=== PATIENT | female | born 1995 | race Caucasian/White ===

== ENCOUNTER 2017-10-16 01:47 | Observation (INO) ==
[2017-10-16] MEDS ORDERED: ACETAMINOPHEN 325 MG TABLET PO PRN (03:20)
[2017-10-16] MEDS ORDERED: ONDANSETRON 4 MG/2 ML VIAL IV PRN (03:20)
[2017-10-16 03:48] LABS: Basophils % 0.2 % (0.0-0.8); Eosinophils # 0.2 10*3/uL (0.0-0.87); Eosinophils % 0.9 % (0.00-10.9); Hematocrit 32.2 VOL% (35.7-47.0); Hemoglobin 11.3 GM/DL (12.0-16.0); Immature Granulocytes % 1.3 %; Immature Granulocytes Absolute 0.25 #; Lymphocytes # 3.2 10*3/uL (1.4-4.0); Lymphocytes % 17.5 % (21.3-54.2); Mean Corpuscular HGB Conc 35.1 GM/DL (32-36); Mean Corpuscular Hemoglobin 30 PG (27-34); Mean Corpuscular Volume 84.5 FL (87-102); Mean Platelet Volume 9.5 FL (9.6-12.0); Monocytes % 5.1 % (1.7-12.7); Neutrophils # 13.9 10*3/uL (1.4-7.4); Platelet Count 344 T/CUMM (130-400); Red Blood Count 3.81 MC/CUMM (3.8-5.5); Red Cell Distribution Width 13.1 % (9.3-17.3); White Blood Count 18.5 T/CUMM (4-12)
[2017-10-16 04:04] LABS: Apearance,Urine CLOUDY (Clear); Bilirubin,Urine Negative (Negative); Blood, Urine Negative (Negative); Glucose,Urine (UA) Negative (Negative); Ketones,Urine Negative (Negative); Mucus,Urine Occasional /LPF (Occasional); Nitrite,Urine Negative (Negative); Protein,Urine 30 MG/DL; Squamous Epithelial Cell,Urine Few /HPF (0-10); Urine Color Yellow (Yellow); Urine Specific Gravity 1.016 (1.001-1.035); Urine Urobilinogen < 2.0 EU/DL (0.2-1.0); WBC,Urine 10 /HPF (0-6)
[2017-10-16 04:05] LABS: Alanine Aminotransferase 10 U/L (13-56); Albumin 2.7 G/DL (3.4-5.0); Alkaline Phosphatase 120 U/L (45-117); Aspartate Amino Transferase 14 U/L (0-37); Bilirubin,Total < 0.39 MG/DL (0.2-1.0); Blood Urea Nitrogen 6 MG/DL (7-18); Calcium 8.7 MG/DL (8.5-10.1); Glucose 103 MG/DL (74-106); Osmolality,Calculated 272.7 MOS/KG (273-304); Potassium 3.5 MMOL/L (3.5-5.1); Sodium 138 MMOL/L (136-145); Total Protein 6.1 G/DL (6.4-8.3)
[2017-10-16] MEDS ORDERED: MEPERIDINE 25 MG/1 ML VIAL IV ONE (05:00)
[2017-10-16] MEDS ORDERED: PROMETHAZINE 25 MG/1 ML VIAL IM ONE (05:00)
[2017-10-16 08:32] VITALS: BP 109/72
== END 2017-10-16 10:25 | disposition home or self-care (01) ==
LOC: N.ED 01:47 → N.OB 01:47
PROVIDERS: ADMIT Obstetrics & Gynecology; ATTEND Obstetrics & Gynecology

== ENCOUNTER 2017-12-29 06:09 | Inpatient (IN) ==
[2017-12-29] MEDS ORDERED: BUTORPHANOL 1 MG/ML VIAL IV PRN (06:31)
[2017-12-29] MEDS ORDERED: MEPERIDINE 50 MG/1 ML VIAL IV PRN (06:31)
[2017-12-29] MEDS ORDERED: OXYTOCIN/LR 20 UNIT/1,000 ML BAG IV PRN (06:31)
[2017-12-29] MEDS ORDERED: DINOPROSTONE VAG GEL 10 MG SYRINGE VAG PRN (06:38)
[2017-12-29] MEDS: LACTATED RINGERS 1,000 ML IV SCH ×2 (06:45→17:41)
[2017-12-29 07:08] LABS: Basophils % 0.2 % (0.0-0.8); Eosinophils # 0.2 10*3/uL (0.0-0.87); Eosinophils % 0.8 % (0.00-10.9); Hematocrit 29.9 VOL% (35.7-47.0); Hemoglobin 10.5 GM/DL (12.0-16.0); Immature Granulocytes % 2.1 %; Immature Granulocytes Absolute 0.41 #; Lymphocytes # 2.5 10*3/uL (1.4-4.0); Lymphocytes % 13.2 % (21.3-54.2); Mean Corpuscular HGB Conc 35.1 GM/DL (32-36); Mean Corpuscular Hemoglobin 29 PG (27-34); Mean Corpuscular Volume 81.5 FL (87-102); Mean Platelet Volume 9.9 FL (9.6-12.0); Monocytes # 1.2 10*3/uL (0.11-0.8); Monocytes % 6.3 % (1.7-12.7); Neutrophils # 14.8 10*3/uL (1.4-7.4); Neutrophils % 77.4 % (38.7-73.9); Platelet Count 373 T/CUMM (130-400); Red Blood Count 3.67 MC/CUMM (3.8-5.5); Red Cell Distribution Width 13.7 % (9.3-17.3); White Blood Count 19.1 T/CUMM (4-12)
[2017-12-29] MEDS: ALUMINUM/MAGNES/SIMETH MAX STR 30 ML UDCUP PO PRN ×3 (07:26→23:47)
[2017-12-29 07:31] LABS: Albumin 2.4 G/DL (3.4-5.0); Bilirubin,Total 0.4 MG/DL (0.2-1.0); Calcium 8.7 MG/DL (8.5-10.1); Osmolality,Calculated 272.7 MOS/KG (273-304); Potassium 4.2 MMOL/L (3.5-5.1); Total Protein 6.2 G/DL (6.4-8.3)
[2017-12-29] MEDS ORDERED: DINOPROSTONE VAG GEL 10 MG SYRINGE VAG ONE (15:00)
[2017-12-29] MEDS: ONDANSETRON 4 MG/2 ML VIAL IV PRN (19:21)
[2017-12-29] MEDS ORDERED: hydrOXYzine HCL 25 MG/1 ML VIAL IM PRN (20:42)
[2017-12-29] MEDS ORDERED: ePHEDrine 50 MG/ML AMP IV PRN (20:42)
[2017-12-29] MEDS ORDERED: fentaNYL 2 MCG/ROPIV 0.2% EPID 150 ML EPIDURAL PRN (20:42)
[2017-12-29] MEDS ORDERED: PROMETHAZINE 25 MG/1 ML VIAL IM PRN (20:42)
[2017-12-29] MEDS ORDERED: diphenhydrAMINE 50 MG/1 ML VIAL IV PRN ×2 (20:42)
[2017-12-29] MEDS ORDERED: FAMOTIDINE 20 MG/2 ML VIAL IV PRN (20:45)
[2017-12-29] MEDS ORDERED: CITRIC ACID/SODIUM CITRATE 30 ML UDCUP PO PRN (20:45)
[2017-12-30] MEDS ORDERED: OXYTOCIN/LR 20 UNIT/1,000 ML BAG IV SCH (02:00)
[2017-12-30] MEDS: ALUMINUM/MAGNES/SIMETH MAX STR 30 ML UDCUP PO PRN (04:31)
[2017-12-30] MEDS: ONDANSETRON 4 MG/2 ML VIAL IV PRN (10:45)
[2017-12-30 12:05] LABS: Apearance,Urine CLEAR (Clear); Bilirubin,Urine Negative (Negative); Blood, Urine Negative (Negative); Glucose,Urine (UA) Negative (Negative); Ketones,Urine Negative (Negative); Mucus,Urine Occasional /LPF (Occasional); Nitrite,Urine Negative (Negative); Protein,Urine Negative; RBC,Urine 1 /HPF (0-4); Squamous Epithelial Cell,Urine Occasional /HPF (0-10); Urine Color Straw (Yellow); Urine Specific Gravity 1.011 (1.001-1.035); Urine Urobilinogen < 2.0 EU/DL (0.2-1.0); WBC,Urine 2 /HPF (0-6)
[2017-12-30] MEDS ORDERED: ONDANSETRON 4 MG/2 ML VIAL IV PRN (13:33)
[2017-12-30] MEDS ORDERED: MEASLES/MUMPS/RUBELLA VACCINE 0.5 ML VIAL SUBCUT ONE (13:33)
[2017-12-30] MEDS ORDERED: RHO(D) IMMUNE GLOBULIN 300 MCG SYRINGE IM ONE (13:33)
[2017-12-30] MEDS ORDERED: LANOLIN 50% CREAM 0.3 OZ TUBE TOP PRN (13:33)
[2017-12-30] MEDS ORDERED: ACETAMINOPHEN 325 MG TABLET PO PRN (13:33)
[2017-12-30] MEDS ORDERED: BENZOCAINE 20%/MENTHOL 0.5% SPRAY 56 GM CAN TOP PRN (13:33)
[2017-12-30] MEDS ORDERED: OXYTOCIN/LR 20 UNIT/1,000 ML BAG IV ONE (13:33)
[2017-12-30] MEDS ORDERED: HYDROCORTISONE 2.5% RECTAL CREAM 30 GM TUBE TOP PRN (13:33)
[2017-12-30] MEDS ORDERED: oxyCODONE/ACETAMINOPHEN 5-325 MG TABLET PO PRN (13:33)
[2017-12-30] MEDS ORDERED: DIPH/TET/ACEL PERT BOOSTER VACCINE 0.5 ML VIAL IM ONE (13:33)
[2017-12-30] MEDS ORDERED: WITCH HAZEL PADS 100/JAR TOP PRN (13:33)
[2017-12-30] MEDS ORDERED: BISACODYL 10 MG SUPP RECTAL PRN (13:33)
[2017-12-30] MEDS: IBUPROFEN 800 MG TABLET PO PRN (19:55)
[2017-12-30] MEDS: DOCUSATE SODIUM 100 MG CAPSULE PO SCH (20:47)
[2017-12-30] MEDS: oxyCODONE/ACETAMINOPHEN 5-325 MG TABLET PO PRN (20:47)
[2017-12-31] MEDS: DOCUSATE SODIUM 100 MG CAPSULE PO SCH ×2 (08:09→21:39)
[2017-12-31] MEDS: IBUPROFEN 800 MG TABLET PO PRN ×2 (08:09→15:51)
[2017-12-31 08:10] LABS: Basophils % 0.2 % (0.0-0.8); Eosinophils # 0.2 10*3/uL (0.0-0.87); Eosinophils % 0.8 % (0.00-10.9); Hematocrit 24.4 VOL% (35.7-47.0); Immature Granulocytes % 1.8 %; Immature Granulocytes Absolute 0.35 #; Lymphocytes # 2.6 10*3/uL (1.4-4.0); Lymphocytes % 13.8 % (21.3-54.2); Mean Corpuscular HGB Conc 33.2 GM/DL (32-36); Mean Corpuscular Hemoglobin 28 PG (27-34); Mean Corpuscular Volume 84.4 FL (87-102); Mean Platelet Volume 10.3 FL (9.6-12.0); Monocytes # 1.1 10*3/uL (0.11-0.8); Monocytes % 5.9 % (1.7-12.7); Neutrophils # 14.7 10*3/uL (1.4-7.4); Neutrophils % 77.5 % (38.7-73.9); Platelet Count 306 T/CUMM (130-400); Red Cell Distribution Width 13.6 % (9.3-17.3); White Blood Count 18.9 T/CUMM (4-12)
[2017-12-31 08:31] LABS: Hemoglobin 8.1 GM/DL (12.0-16.0); Red Blood Count 2.89 MC/CUMM (3.8-5.5)
[2017-12-31] MEDS: oxyCODONE/ACETAMINOPHEN 5-325 MG TABLET PO PRN ×2 (09:54→19:56)
[2018-01-01] MEDS: oxyCODONE/ACETAMINOPHEN 5-325 MG TABLET PO PRN (03:36)
[2018-01-01 08:12] VITALS: BP 105/64
== END 2018-01-01 11:40 | disposition home or self-care (01) | DRG 560 ==
LOC: N.LDOUT 06:09 → N.LD 06:12 → N.OB 12-30 20:19
PROVIDERS: ADMIT Obstetrics & Gynecology; ATTEND Obstetrics & Gynecology

== ENCOUNTER 2019-08-01 14:58 | Inpatient (IN) ==
[2019-08-01] MEDS ORDERED: ONDANSETRON 4 MG/2 ML VIAL IV PRN (15:25)
[2019-08-01] MEDS ORDERED: MEPERIDINE 50 MG/1 ML VIAL IV PRN (15:30)
[2019-08-01] MEDS ORDERED: CARBOPROST TROMETHAMINE 250 MCG/ML AMP IM PRN (15:30)
[2019-08-01] MEDS ORDERED: LIDOCAINE 1% 50 ML VIAL MISC INJ ONE (15:30)
[2019-08-01] MEDS ORDERED: miSOPROStoL 200 MCG TABLET VAG PRN (15:30)
[2019-08-01] MEDS ORDERED: BUTORPHANOL 2 MG/ML VIAL IV PRN (15:30)
[2019-08-01] MEDS ORDERED: LACTATED RINGERS 1,000 ML IV SCH (15:30)
[2019-08-01 15:50] LABS: Basophils % 0.1 % (0.0-0.8); Eosinophils # 0.1 10*3/uL (0.0-0.87); Eosinophils % 0.6 % (0.00-10.9); Hematocrit 34.2 VOL% (35.7-47.0); Hemoglobin 11.3 GM/DL (12.0-16.0); Immature Granulocytes % 0.7 %; Lymphocytes # 1.9 10*3/uL (1.4-4.0); Mean Corpuscular Volume 80.5 FL (87-102); Mean Platelet Volume 9.8 FL (9.6-12.0); Monocytes % 5.5 % (1.7-12.7); Neutrophils % 80.1 % (38.7-73.9); Platelet Count 392 T/CUMM (130-400); Red Blood Count 4.25 MC/CUMM (3.8-5.5); Red Cell Distribution Width 14.3 % (9.3-17.3); White Blood Count 14.4 T/CUMM (4-12)
[2019-08-01] MEDS ORDERED: DINOPROSTONE VAG GEL 10 MG SYRINGE VAG ONE (16:00)
[2019-08-01 16:13] LABS: Alanine Aminotransferase 16 U/L (13-56); Albumin 2.6 G/DL (3.4-5.0); Alkaline Phosphatase 177 U/L (45-117); Aspartate Amino Transferase 12 U/L (0-37); Bilirubin,Total < 0.39 MG/DL (0.2-1.0); Blood Urea Nitrogen 7 MG/DL (7-18); Calcium 8.8 MG/DL (8.5-10.1); Estimated Glom Filtration Rate 140 ML/MIN; Glucose 103 MG/DL (74-106); Osmolality,Calculated 267.1 MOS/KG (273-304); Total Protein 6.9 G/DL (6.4-8.3); Uric Acid 4.5 MG/DL (2.6-6.0)
[2019-08-01] MEDS ORDERED: OXYTOCIN 10 UNIT/ML VIAL ONE (19:59)
[2019-08-01] MEDS ORDERED: miSOPROStoL 200 MCG TABLET ONE (20:01)
[2019-08-01] MEDS ORDERED: CARBOPROST TROMETHAMINE 250 MCG/ML AMP IM ONE (20:02)
[2019-08-01] MEDS ORDERED: METHYLERGONOVINE 0.2 MG/1 ML AMP ONE (20:02)
[2019-08-01] MEDS ORDERED: ALUMINUM/MAGNES/SIMETH MAX STR 30 ML UDCUP PO PRN (21:22)
[2019-08-02] MEDS: OXYTOCIN/LR 20 UNIT/1,000 ML BAG IV SCH ×2 (02:23→16:05)
[2019-08-02] MEDS ORDERED: NALOXONE 0.4 MG/ML VIAL IV PRN (07:30)
[2019-08-02] MEDS ORDERED: LACTATED RINGERS 1,000 ML IV SCH ×2 (07:30)
[2019-08-02] MEDS ORDERED: diphenhydrAMINE 50 MG/1 ML VIAL IV PRN ×2 (07:30)
[2019-08-02] MEDS ORDERED: LACTATED RINGERS 1,000 ML IV ONE (07:30)
[2019-08-02] MEDS ORDERED: fentaNYL 2 MCG/ROPIV 0.2% EPID 100 ML EPIDURAL SCH (07:30)
[2019-08-02] MEDS ORDERED: ePHEDrine 50 MG/ML AMP IV PRN (07:30)
[2019-08-02] MEDS ORDERED: PROMETHAZINE 25 MG/1 ML VIAL IM ONE (07:30)
[2019-08-02] MEDS ORDERED: ONDANSETRON 4 MG/2 ML VIAL IV ONE (07:30)
[2019-08-02] MEDS ORDERED: FAMOTIDINE 20 MG/2 ML VIAL IV ONE (07:30)
[2019-08-02] MEDS ORDERED: hydrOXYzine HCL 25 MG/1 ML VIAL IM PRN (07:30)
[2019-08-02] MEDS ORDERED: CITRIC ACID/SODIUM CITRATE 30 ML UDCUP PO ONE (07:30)
[2019-08-02 10:39] LABS: Apearance,Urine CLEAR (Clear); Bilirubin,Urine Negative (Negative); Blood, Urine Negative (Negative); Glucose,Urine (UA) Negative (Negative); Ketones,Urine Negative (Negative); Nitrite,Urine Negative (Negative); Protein,Urine Negative; RBC,Urine <1 /HPF (0-4); Squamous Epithelial Cell,Urine Occasional /HPF (0-10); Urine Color Straw (Yellow); Urine Urobilinogen < 2.0 EU/DL (0.2-1.0); WBC,Urine <1 /HPF (0-6)
[2019-08-02] MEDS ORDERED: LIDOCAINE 1% 50 ML VIAL ONE (12:34)
[2019-08-02] MEDS ORDERED: METHYLERGONOVINE 0.2 MG/1 ML AMP ONE ×2 (12:38→16:56)
[2019-08-02 12:58] LABS: Cord Venous Blood HCO3 22.3 MMOL/L; Cord Venous Blood PCO2 41.5 MMHG; Cord Venous Blood PO2 33.5
[2019-08-02] MEDS ORDERED: OXYTOCIN/LR 20 UNIT/1,000 ML BAG IV ONE ×3 (16:07→17:16)
[2019-08-02] MEDS ORDERED: miSOPROStoL 200 MCG TABLET ONE (16:55)
[2019-08-02] MEDS ORDERED: CARBOPROST TROMETHAMINE 250 MCG/ML AMP IM ONE (16:56)
[2019-08-02] MEDS ORDERED: RHO(D) IMMUNE GLOBULIN 300 MCG SYRINGE IM ONE (17:16)
[2019-08-02] MEDS ORDERED: BISACODYL 10 MG SUPP RECTAL PRN (17:16)
[2019-08-02] MEDS ORDERED: LANOLIN 50% CREAM 0.3 OZ TUBE TOP PRN (17:16)
[2019-08-02] MEDS ORDERED: MEASLES/MUMPS/RUBELLA VACCINE 0.5 ML VIAL SUBCUT ONE (17:16)
[2019-08-02] MEDS ORDERED: oxyCODONE/ACETAMINOPHEN 5-325 MG TABLET PO PRN ×2 (17:16)
[2019-08-02] MEDS ORDERED: DIPH/TET/ACEL PERT BOOSTER VACCINE 0.5 ML VIAL IM ONE (17:16)
[2019-08-02] MEDS ORDERED: WITCH HAZEL PADS 100/JAR TOP PRN (17:16)
[2019-08-02] MEDS ORDERED: HYDROCORTISONE 2.5% RECTAL CREAM 30 GM TUBE TOP PRN (17:16)
[2019-08-02] MEDS ORDERED: ACETAMINOPHEN 325 MG TABLET PO PRN (17:16)
[2019-08-02] MEDS ORDERED: BENZOCAINE 20%/MENTHOL 0.5% SPRAY 56 GM CAN TOP PRN (17:16)
[2019-08-02] MEDS: IBUPROFEN 800 MG TABLET PO PRN (19:40)
[2019-08-02] MEDS: DOCUSATE SODIUM 100 MG CAPSULE PO SCH (21:32)
[2019-08-03 06:31] LABS: Basophils % 0.3 % (0.0-0.8); Eosinophils # 0.3 10*3/uL (0.0-0.87); Eosinophils % 2.2 % (0.00-10.9); Hematocrit 31.7 VOL% (35.7-47.0); Hemoglobin 10.3 GM/DL (12.0-16.0); Immature Granulocytes % 0.7 %; Immature Granulocytes Absolute 0.09 #; Lymphocytes % 14.6 % (21.3-54.2); Mean Corpuscular HGB Conc 32.5 GM/DL (32-36); Mean Corpuscular Volume 81.5 FL (87-102); Mean Platelet Volume 10.1 FL (9.6-12.0); Monocytes % 6.8 % (1.7-12.7); Neutrophils % 75.4 % (38.7-73.9); Platelet Count 325 T/CUMM (130-400); Red Blood Count 3.89 MC/CUMM (3.8-5.5); Red Cell Distribution Width 14.6 % (9.3-17.3); White Blood Count 13.7 T/CUMM (4-12)
[2019-08-03] MEDS: DOCUSATE SODIUM 100 MG CAPSULE PO SCH ×2 (09:50→20:41)
[2019-08-03] MEDS: IBUPROFEN 800 MG TABLET PO PRN ×2 (09:54→16:02)
[2019-08-03] MEDS ORDERED: INFLUENZA VIRUS VACCINE 0.5 ML SYRINGE IM ONE (15:51)
[2019-08-04] MEDS ORDERED: INFLUENZA VIRUS VACCINE 0.5 ML SYRINGE IM ONE (08:50)
[2019-08-04] MEDS: DOCUSATE SODIUM 100 MG CAPSULE PO SCH (09:05)
[2019-08-04 11:27] VITALS: BP 114/65
== END 2019-08-04 13:30 | disposition home or self-care (01) | DRG 560 ==
LOC: N.LDOUT 14:58 → N.LD 15:04 → N.OB 08-02 17:47
PROVIDERS: ADMIT Obstetrics & Gynecology; ATTEND Obstetrics & Gynecology

== ENCOUNTER 2021-11-10 09:26 | Inpatient (IN) ==
[2021-11-10] MEDS ORDERED: miSOPROStoL 200 MCG TABLET RECTAL PRN (10:01)
[2021-11-10] MEDS ORDERED: CARBOPROST TROMETHAMINE 250 MCG/ML AMP IM PRN (10:01)
[2021-11-10] MEDS ORDERED: TRANEXAMIC ACID 1,000 MG in SODIUM CHLORIDE 0.9% 100 ML IV PRN (10:01)
[2021-11-10] MEDS ORDERED: ceFAZolin 2,000 MG/50 ML DUPLEX IV ONE (10:01)
[2021-11-10] MEDS ORDERED: FAMOTIDINE 20 MG/2 ML VIAL IV ONE (10:01)
[2021-11-10] MEDS ORDERED: OXYTOCIN/LR 20 UNIT/1,000 ML BAG IV ONE ×2 (10:01→14:54)
[2021-11-10] MEDS ORDERED: CITRIC ACID/SODIUM CITRATE 30 ML UDCUP PO ONE (10:01)
[2021-11-10] MEDS ORDERED: METHYLERGONOVINE 0.2 MG/1 ML AMP IM PRN (10:01)
[2021-11-10] MEDS ORDERED: LACTATED RINGERS 1,000 ML IV ONE ×2 (10:09→14:23)
[2021-11-10] MEDS ORDERED: LACTATED RINGERS 1,000 ML IV SCH ×2 (10:30→15:00)
[2021-11-10 10:59] LABS: Basophils % 0.2 % (0.0-0.8); Eosinophils # 0.2 10*3/uL (0.0-0.87); Eosinophils % 1.5 % (0.00-10.9); Hematocrit 33.8 VOL% (35.7-47.0); Hemoglobin 11.1 GM/DL (12.0-16.0); Immature Granulocytes % 0.6 %; Immature Granulocytes Absolute 0.07 #; Lymphocytes # 1.3 10*3/uL (1.4-4.0); Lymphocytes % 10.7 % (21.3-54.2); Mean Corpuscular HGB Conc 32.8 GM/DL (32-36); Mean Corpuscular Volume 81.8 FL (87-102); Mean Platelet Volume 10.1 FL (9.6-12.0); Monocytes # 0.6 10*3/uL (0.11-0.8); Monocytes % 5.1 % (1.7-12.7); Neutrophils % 81.9 % (38.7-73.9); Platelet Count 313 T/CUMM (130-400); Red Blood Count 4.13 MC/CUMM (3.8-5.5); Red Cell Distribution Width 13.7 % (9.3-17.3); White Blood Count 12.3 T/CUMM (4-12)
[2021-11-10 11:24] LABS: Alanine Aminotransferase 19 U/L (13-56); Albumin 2.3 G/DL (3.4-5.0); Alkaline Phosphatase 233 U/L (45-117); Aspartate Amino Transferase 16 U/L (0-37); Bilirubin,Total < 0.39 MG/DL (0.20-1.00); Blood Urea Nitrogen 8 MG/DL (7-18); Calcium 8.8 MG/DL (8.5-10.1); Carbon Dioxide 23 MMOL/L (21-32); Chloride 108 MMOL/L (98-107); Estimated Glom Filtration Rate 131 ML/MIN; Glucose 67 MG/DL (74-106); Potassium 4.2 MMOL/L (3.5-5.1); Sodium 136 MMOL/L (136-145); Total Protein 6.6 G/DL (6.4-8.2)
[2021-11-10] MEDS ORDERED: OXYTOCIN/LR 30 UNIT/1,000 ML BAG IV ONE (13:00)
[2021-11-10] MEDS ORDERED: OXYTOCIN 10 UNIT/ML VIAL IM ONE (13:00)
[2021-11-10] MEDS ORDERED: miSOPROStoL 200 MCG TABLET ONE (13:01)
[2021-11-10] MEDS ORDERED: TRANEXAMIC ACID 1,000 MG/10 ML VIAL ONE (13:01)
[2021-11-10] MEDS ORDERED: CARBOPROST TROMETHAMINE 250 MCG/ML AMP IM ONE (13:02)
[2021-11-10] MEDS ORDERED: OXYTOCIN/LR 0 UNIT/0 ML BAG IV ONE (13:02)
[2021-11-10] MEDS ORDERED: SODIUM CHLORIDE 0.9% 0 ML IV ONE (13:02)
[2021-11-10] MEDS ORDERED: METHYLERGONOVINE 0.2 MG/1 ML AMP ONE (13:02)
[2021-11-10] MEDS ORDERED: buprenorphine HCL 0.3 MG/ML VIAL ONE (13:34)
[2021-11-10] MEDS ORDERED: ONDANSETRON 4 MG/2 ML VIAL ONE (13:42)
[2021-11-10] MEDS ORDERED: BUPIVACAINE MPF 0.5% 30 ML VIAL ONE (13:42)
[2021-11-10] MEDS ORDERED: ePHEDrine 50 MG/ML VIAL ONE (14:17)
[2021-11-10] MEDS ORDERED: PHENYLEPHRINE 1 MG/10 ML SYRINGE IV ONE ×2 (14:23→14:45)
[2021-11-10] MEDS ORDERED: ACETAMINOPHEN INJ 1,000 MG/100 ML VIAL IV ONE (14:33)
[2021-11-10] MEDS ORDERED: MIDAZOLAM 2 MG/2 ML VIAL ONE (14:37)
[2021-11-10 14:46] LABS: Cord Venous Blood HCO3 22.8 MMOL/L; Cord Venous Blood PCO2 56.3 MMHG; Cord Venous Blood PO2 19.3
[2021-11-10 14:52] LABS: Cord Arterial Blood HCO3 23.1 MMOL/L
[2021-11-10] MEDS ORDERED: ACETAMINOPHEN 325 MG TABLET PO PRN (14:54)
[2021-11-10] MEDS ORDERED: RHO(D) IMMUNE GLOBULIN 300 MCG SYRINGE IM ONE (14:54)
[2021-11-10] MEDS ORDERED: ONDANSETRON 4 MG/2 ML VIAL IV PRN (14:54)
[2021-11-10 15:15] LABS: Bacteria,Urine Occasional /HPF (Few); Bilirubin,Urine Negative (Negative); Blood, Urine Negative (Negative); Glucose,Urine (UA) Negative (Negative); Ketones,Urine Negative (Negative); Mucus,Urine Occasional /LPF (Occasional); Nitrite,Urine Negative (Negative); Protein,Urine Negative (Negative); RBC,Urine <1 /HPF (0-4); Squamous Epithelial Cell,Urine Occasional /HPF (0-10); Urine Appearance Clear (Clear); Urine Color Yellow (Yellow)
[2021-11-10 15:16] LABS: Urine Urobilinogen 0.2 eU/dL (<2.0)
[2021-11-10 19:21] LABS: Barbiturates Screen,Urine Negative (Negative); Benzodiazepines Screen,Urine Negative (Negative); Cannabinoid Screen,Urine Negative (Negative); Opiate Screen,Urine Negative (Negative); Phencyclidine Screen,Urine Negative (Negative)
[2021-11-10] MEDS: diphenhydrAMINE 50 MG/1 ML VIAL IV PRN (20:34)
[2021-11-10] MEDS: ACETAMINOPHEN 500 MG TABLET PO SCH (20:35)
[2021-11-10] MEDS: IBUPROFEN 800 MG TABLET PO PRN (22:06)
[2021-11-10 22:38] LABS: Basophils # 0.1 10*3/uL (0.0-0.2); Basophils % 0.4 % (0.0-0.8); Eosinophils # 0.1 10*3/uL (0.0-0.87); Eosinophils % 0.8 % (0.00-10.9); Hematocrit 29.7 VOL% (35.7-47.0); Immature Granulocytes % 0.7 %; Immature Granulocytes Absolute 0.09 #; Lymphocytes # 1.7 10*3/uL (1.4-4.0); Lymphocytes % 12.3 % (21.3-54.2); Mean Corpuscular HGB Conc 33.7 GM/DL (32-36); Mean Corpuscular Volume 80.1 FL (87-102); Mean Platelet Volume 9.8 FL (9.6-12.0); Monocytes # 0.7 10*3/uL (0.11-0.8); Monocytes % 4.8 % (1.7-12.7); Platelet Count 275 T/CUMM (130-400); Red Blood Count 3.71 MC/CUMM (3.8-5.5); Red Cell Distribution Width 13.6 % (9.3-17.3); White Blood Count 13.6 T/CUMM (4-12)
[2021-11-10] MEDS: DOCUSATE SODIUM 100 MG CAPSULE PO SCH (22:49)
[2021-11-11] MEDS: ACETAMINOPHEN 500 MG TABLET PO SCH (03:15)
[2021-11-11 06:18] LABS: Basophils % 0.4 % (0.0-0.8); Eosinophils # 0.2 10*3/uL (0.0-0.87); Eosinophils % 1.6 % (0.00-10.9); Hemoglobin 9.9 GM/DL (12.0-16.0); Immature Granulocytes % 0.7 %; Immature Granulocytes Absolute 0.07 #; Lymphocytes # 1.4 10*3/uL (1.4-4.0); Lymphocytes % 14.4 % (21.3-54.2); Mean Corpuscular Volume 80.4 FL (87-102); Mean Platelet Volume 10.1 FL (9.6-12.0); Monocytes # 0.5 10*3/uL (0.11-0.8); Monocytes % 5.2 % (1.7-12.7); Neutrophils % 77.7 % (38.7-73.9); Platelet Count 281 T/CUMM (130-400); Red Blood Count 3.73 MC/CUMM (3.8-5.5); Red Cell Distribution Width 13.5 % (9.3-17.3); White Blood Count 9.9 T/CUMM (4-12)
[2021-11-11] MEDS: SIMETHICONE CHEW 80 MG TABLET PO PRN ×2 (09:29→20:26)
[2021-11-11] MEDS: MULTIVITAMIN (PRENATAL) TABLET PO SCH (09:29)
[2021-11-11] MEDS: DOCUSATE SODIUM 100 MG CAPSULE PO SCH ×2 (09:29→20:24)
[2021-11-11] MEDS: METOCLOPRAMIDE 10 MG TABLET PO SCH ×2 (09:29→16:02)
[2021-11-11] MEDS: diphenhydrAMINE 50 MG/1 ML VIAL IV PRN (09:45)
[2021-11-11] MEDS: ONDANSETRON 4 MG TABLET PO PRN ×2 (14:16→20:23)
[2021-11-11] MEDS: MAGNESIUM HYDROXIDE SUSP 30 ML UDCUP PO PRN (20:25)
[2021-11-11] MEDS: IBUPROFEN 800 MG TABLET PO PRN (21:43)
[2021-11-12] MEDS: METOCLOPRAMIDE 10 MG TABLET PO SCH ×2 (00:33→08:13)
[2021-11-12 07:19] VITALS: BP 108/67
[2021-11-12] MEDS: MAGNESIUM HYDROXIDE SUSP 30 ML UDCUP PO PRN (08:13)
[2021-11-12] MEDS: SIMETHICONE CHEW 80 MG TABLET PO PRN (08:14)
[2021-11-12] MEDS: MULTIVITAMIN (PRENATAL) TABLET PO SCH (08:14)
[2021-11-12] MEDS: DOCUSATE SODIUM 100 MG CAPSULE PO SCH (08:14)
[2021-11-12] MEDS: IBUPROFEN 800 MG TABLET PO PRN (08:19)
[2021-11-12] MEDS ORDERED: CLINDAMYCIN 300 MG CAPSULE PO SCH (15:00)
== END 2021-11-12 13:20 | disposition home or self-care (01) | DRG 540 ==
LOC: N.LD 09:26 → N.OB 17:45
PROVIDERS: ADMIT Obstetrics & Gynecology; ATTEND Obstetrics & Gynecology
PROC: LDCSECT (ICD-10-PCS; 2021-11-10 14:25)